=== PATIENT | female | born 1950 | race Native Hawaiian/Other Pacific Islander ===

== ENCOUNTER 2017-04-01 07:31 | Day surgery (SDC) | payer BC ==
[2017-03-28 09:48] LABS: PLATELET COUNT 312 K/uL (152-353)
[2017-03-28 10:05] LABS: POTASSIUM 4.4 mmol/L (3.6-5.2)
[2017-03-28 10:20] LABS: PARTIAL THROMBOPLASTIN TIME 22.3 SECONDS (24.5-33.6)
== END 2017-04-01 12:40 | disposition home or self-care (01) ==
LOC: OR 07:31
PROVIDERS: Student in an Organized Health Care Education/Training Program
PROC: 0DJD8ZZ Inspection of Lower Intestinal Tract, Via Natural or Artificial Opening Endoscopic (ICD-10-PCS; principal; 2017-04-01)
DX: K64.8 Other hemorrhoids (principal); Z12.11 Encounter for screening for malignant neoplasm of colon
CPT/HCPCS: 36415; 80053; 85027; 85610; 85730; J2001; J2250; J2704

== ENCOUNTER 2018-04-23 10:31 | Outpatient (CLI) | payer OTHER, BC ==
[2018-04-23 11:04] LABS: PLATELET COUNT 359 K/uL (152-353)
[2018-04-23 11:55] LABS: POTASSIUM 4.7 mmol/L (3.6-5.2)
== END 2018-04-23 19:27 | disposition home or self-care (01) ==
LOC: LABW 10:31
PROVIDERS: Internal Medicine
DX: I12.9 Hypertensive chronic kidney disease with stage 1 through stage 4 chronic kidney disease, or unspecified chronic kidney disease (principal); N18.4 Chronic kidney disease, stage 4 (severe); E87.5 Hyperkalemia; E87.2 Acidosis; N25.0 Renal osteodystrophy
CPT/HCPCS: 36415; 80053; 82570; 82728; 83540; 83550; 84100; 84155; 84550; 85027

== ENCOUNTER 2018-08-12 07:37 | Outpatient (CLI) | payer OTHER, BC ==
[2018-08-12 08:04] LABS: PLATELET COUNT 381 K/uL (152-353)
[2018-08-12 08:24] LABS: POTASSIUM 4.9 mmol/L (3.6-5.2)
== END 2018-08-12 22:58 | disposition home or self-care (01) ==
LOC: LABW 07:37
PROVIDERS: Specialist
DX: N18.4 Chronic kidney disease, stage 4 (severe) (principal); N18.9 Chronic kidney disease, unspecified; E87.5 Hyperkalemia; I12.9 Hypertensive chronic kidney disease with stage 1 through stage 4 chronic kidney disease, or unspecified chronic kidney disease; E87.2 Acidosis
CPT/HCPCS: 36415; 80053; 81000; 82570; 83970; 84100; 84155; 85027

== ENCOUNTER 2018-12-10 08:26 | Outpatient (CLI) | payer OTHER, BC ==
[2018-12-10 08:56] LABS: POTASSIUM 4.6 mmol/L (3.6-5.2)
== END 2018-12-10 22:47 | disposition home or self-care (01) ==
LOC: LABW 08:26
PROVIDERS: Internal Medicine
DX: N18.4 Chronic kidney disease, stage 4 (severe) (principal); N18.9 Chronic kidney disease, unspecified
CPT/HCPCS: 36415; 80048

== ENCOUNTER 2019-02-19 09:36 | Outpatient (CLI) | payer OTHER, BC ==
[2019-02-19 09:55] LABS: PLATELET COUNT 317 K/uL (152-353)
[2019-02-19 10:08] LABS: POTASSIUM 4.8 mmol/L (3.6-5.2)
== END 2019-02-19 21:41 | disposition home or self-care (01) ==
LOC: LAB 09:36
PROVIDERS: Internal Medicine
DX: I12.9 Hypertensive chronic kidney disease with stage 1 through stage 4 chronic kidney disease, or unspecified chronic kidney disease (principal)
CPT/HCPCS: 36415; 80053; 81000; 82570; 83970; 84100; 84155; 85027

== ENCOUNTER 2019-06-15 08:35 | Outpatient (CLI) | payer OTHER, BC ==
[2019-06-15 10:29] LABS: PLATELET COUNT 298 K/uL (152-353)
[2019-06-15 11:30] LABS: POTASSIUM 5.1 mmol/L (3.6-5.2); SODIUM 142 mmol/L (136-145)
== END 2019-06-15 23:18 | disposition home or self-care (01) ==
LOC: LABW 08:35
PROVIDERS: Internal Medicine
DX: I12.9 Hypertensive chronic kidney disease with stage 1 through stage 4 chronic kidney disease, or unspecified chronic kidney disease (principal); N18.4 Chronic kidney disease, stage 4 (severe)
CPT/HCPCS: 36415; 80053; 81000; 82570; 83970; 84100; 84155; 85027

== ENCOUNTER 2019-10-06 08:39 | Outpatient (CLI) | payer OTHER, BC ==
[2019-10-06 09:33] LABS: POTASSIUM 5.3 mmol/L (3.6-5.2)
[2019-10-06 10:00] LABS: PLATELET COUNT 322 K/uL (152-353)
== END 2019-10-06 19:34 | disposition home or self-care (01) ==
LOC: LABW 08:39
PROVIDERS: Internal Medicine
DX: I12.9 Hypertensive chronic kidney disease with stage 1 through stage 4 chronic kidney disease, or unspecified chronic kidney disease (principal)
CPT/HCPCS: 36415; 80053; 81000; 82570; 84100; 84155; 85027

== ENCOUNTER 2020-01-04 09:28 | Outpatient (CLI) | payer OTHER, BC ==
[2020-01-04 09:57] LABS: PLATELET COUNT 311 K/uL (152-353)
[2020-01-04 10:10] LABS: SODIUM 136 mmol/L (136-145)
== END 2020-01-04 19:51 | disposition home or self-care (01) ==
LOC: LABW 09:28
PROVIDERS: Internal Medicine
DX: I12.9 Hypertensive chronic kidney disease with stage 1 through stage 4 chronic kidney disease, or unspecified chronic kidney disease (principal)
CPT/HCPCS: 36415; 80069; 81000; 82570; 83970; 84155; 85027

== ENCOUNTER 2020-03-09 14:19 | Outpatient (CLI) | payer OTHER, BC ==
[2020-03-09 14:52] LABS: PLATELET COUNT 350 K/uL (152-353)
[2020-03-09 14:56] LABS: POTASSIUM 3.8 mmol/L (3.6-5.2)
== END 2020-03-09 21:37 | disposition home or self-care (01) ==
LOC: LABW 14:19 → LAB 14:19
PROVIDERS: Internal Medicine
DX: E83.42 Hypomagnesemia (principal); Z94.0 Kidney transplant status; Z79.899 Other long term (current) drug therapy; R82.998 Other abnormal findings in urine; E83.39 Other disorders of phosphorus metabolism; N18.4 Chronic kidney disease, stage 4 (severe); E03.8 Other specified hypothyroidism
CPT/HCPCS: 80048; 80197; 81000; 83735; 84100; 85027

== ENCOUNTER 2020-07-29 08:39 | Outpatient (CLI) | payer OTHER, BC | END 2020-07-29 23:25 | disposition home or self-care (01) | LOC: US 08:39 | DX: M79.605 Pain in left leg (principal); M79.604 Pain in right leg; R22.43 Localized swelling, mass and lump, lower limb, bilateral ==

== ENCOUNTER 2020-10-03 08:49 | Outpatient (CLI) | payer OTHER, BC | END 2020-10-03 19:03 | disposition home or self-care (01) | LOC: LAB 08:49 | PROVIDERS: ATTEND Internal Medicine | DX: N18.4 Chronic kidney disease, stage 4 (severe) (principal); Z94.0 Kidney transplant status ==

== ENCOUNTER 2021-03-03 12:44 | Outpatient (CLI) | payer BC ==
[2021-03-03 13:35] LABS: POTASSIUM 4.3 mmol/L (3.6-5.2)
== END 2021-03-03 20:55 | disposition home or self-care (01) ==
LOC: LAB 12:44
PROVIDERS: ATTEND Nurse Practitioner Family
DX: Z94.4 Liver transplant status (principal); Z79.01 Long term (current) use of anticoagulants
CPT/HCPCS: 36415; 80048

== ENCOUNTER 2021-08-25 08:23 | Outpatient (CLI) | payer BC | END 2021-08-25 19:52 | disposition home or self-care (01) | LOC: LAB 08:23 | PROVIDERS: ATTEND Nurse Practitioner Family | DX: Z01.84 Encounter for antibody response examination (principal); Z20.822 Contact with and (suspected) exposure to COVID-19 | CPT/HCPCS: 36415; 86769 ==

== ENCOUNTER 2021-11-11 10:54 | Emergency (ER) | payer BC ==
[~2021-11-11] VITALS: Ht 165.1 cm; Wt 80.7 kg
[2021-11-11 11:00] VITALS: BP 113/73; TEMP 98.6
== END 2021-11-11 12:05 | disposition home or self-care (01) ==
LOC: ED 10:54
DX: N39.0 Urinary tract infection, site not specified (principal); Z94.0 Kidney transplant status
CPT/HCPCS: 81000; 87077; 87086; 87088; 87186; 96372; 99283; J0696

== ENCOUNTER 2022-04-05 08:42 | Outpatient (CLI) | payer BC ==
[2022-04-05 09:05] LABS: PLATELET COUNT 276 K/uL (152-353)
[2022-04-05 09:14] LABS: POTASSIUM 4.5 mmol/L (3.6-5.2)
== END 2022-04-05 19:21 | disposition home or self-care (01) ==
LOC: LABW 08:42
PROVIDERS: ATTEND Internal Medicine
DX: E83.39 Other disorders of phosphorus metabolism (principal); E83.42 Hypomagnesemia; Z94.0 Kidney transplant status; Z79.899 Other long term (current) drug therapy; R82.998 Other abnormal findings in urine; B25.8 Other cytomegaloviral diseases
CPT/HCPCS: 36415; 80048; 80197; 81000; 83735; 84100; 85027; 87497

== ENCOUNTER 2022-05-01 08:39 | Outpatient (CLI) | payer BC ==
[2022-05-01 09:16] LABS: PLATELET COUNT 267 K/uL (152-353)
[2022-05-01 09:29] LABS: POTASSIUM 4.2 mmol/L (3.6-5.2)
== END 2022-05-01 19:10 | disposition home or self-care (01) ==
LOC: LABW 08:39
PROVIDERS: ATTEND Student in an Organized Health Care Education/Training Program
DX: Z94.0 Kidney transplant status (principal); Z79.899 Other long term (current) drug therapy; E83.42 Hypomagnesemia; E83.39 Other disorders of phosphorus metabolism; E79.0 Hyperuricemia without signs of inflammatory arthritis and tophaceous disease; R82.998 Other abnormal findings in urine
CPT/HCPCS: 36415; 80048; 80197; 81002; 83735; 84100; 84550; 85027

== ENCOUNTER 2022-06-18 08:12 | Outpatient (CLI) | payer BC ==
[2022-06-18 08:32] LABS: PLATELET COUNT 329 K/uL (152-353)
[2022-06-18 08:49] LABS: POTASSIUM 4.3 mmol/L (3.6-5.2)
== END 2022-06-18 18:55 | disposition home or self-care (01) ==
LOC: LABW 08:12
PROVIDERS: ATTEND Student in an Organized Health Care Education/Training Program
DX: Z94.0 Kidney transplant status (principal); Z79.899 Other long term (current) drug therapy; E83.42 Hypomagnesemia; E83.39 Other disorders of phosphorus metabolism; E79.0 Hyperuricemia without signs of inflammatory arthritis and tophaceous disease; R82.998 Other abnormal findings in urine
CPT/HCPCS: 36415; 80048; 80197; 81002; 83735; 84100; 84550; 85027

== ENCOUNTER 2022-07-13 08:28 | Outpatient (CLI) | payer BC ==
[2022-07-13 08:59] LABS: PLATELET COUNT 295 K/uL (152-353)
[2022-07-13 09:07] LABS: POTASSIUM 4.5 mmol/L (3.6-5.2)
== END 2022-07-13 21:46 | disposition home or self-care (01) ==
LOC: LABW 08:28
PROVIDERS: ATTEND Student in an Organized Health Care Education/Training Program
DX: Z94.0 Kidney transplant status (principal); Z79.899 Other long term (current) drug therapy; E83.42 Hypomagnesemia; E83.39 Other disorders of phosphorus metabolism; E79.0 Hyperuricemia without signs of inflammatory arthritis and tophaceous disease; R82.998 Other abnormal findings in urine
CPT/HCPCS: 36415; 80048; 80197; 81002; 83735; 84100; 84550; 85027

== ENCOUNTER 2022-08-21 08:29 | Outpatient (CLI) | payer BC ==
[2022-08-21 08:50] LABS: PLATELET COUNT 307 K/uL (152-353)
[2022-08-21 08:59] LABS: POTASSIUM 4.3 mmol/L (3.6-5.2)
== END 2022-08-21 19:29 | disposition home or self-care (01) ==
LOC: LABW 08:29
PROVIDERS: ATTEND Student in an Organized Health Care Education/Training Program
DX: Z94.0 Kidney transplant status (principal); Z79.899 Other long term (current) drug therapy; E83.42 Hypomagnesemia; E83.39 Other disorders of phosphorus metabolism; E79.0 Hyperuricemia without signs of inflammatory arthritis and tophaceous disease; R82.998 Other abnormal findings in urine
CPT/HCPCS: 36415; 80048; 80197; 81002; 83735; 84100; 84550; 85027

== ENCOUNTER 2022-09-01 10:35 | Emergency (ER) | payer BC ==
[~2022-09-01] VITALS: Ht 165.1 cm; Wt 86.6 kg
[2022-09-01 11:31] VITALS: BP 131/56; TEMP 97.1
== END 2022-09-01 11:31 | disposition home or self-care (01) ==
LOC: ED 10:35
DX: M54.59 Other low back pain (principal); M53.3 Sacrococcygeal disorders, not elsewhere classified
CPT/HCPCS: 99282

== ENCOUNTER 2022-09-07 09:18 | Emergency (ER) | payer BC ==
[~2022-09-07] VITALS: Ht 165.1 cm; Wt 86.6 kg
[2022-09-07 09:27] VITALS: TEMP 96.9
[2022-09-07 10:36] LABS: PLATELET COUNT 403 K/uL (152-353)
[2022-09-07 10:47] LABS: POTASSIUM 4.2 mmol/L (3.6-5.2)
[2022-09-07 13:57] VITALS: BP 169/88
== END 2022-09-07 13:57 | disposition home or self-care (01) ==
LOC: ED 09:18
PROVIDERS: Emergency Medicine
DX: N39.0 Urinary tract infection, site not specified (principal)
CPT/HCPCS: 36415; 80053; 81000; 85027; 87077; 87086; 87088; 87186; 96365; 96366; 96375; 99284; J1956; J2270; J2405

== ENCOUNTER 2022-09-14 12:15 | Outpatient (CLI) | payer BC | END 2022-09-14 19:08 | disposition home or self-care (01) | LOC: MRI 12:15 | PROVIDERS: ATTEND Internal Medicine | DX: Z09 Encounter for follow-up examination after completed treatment for conditions other than malignant neoplasm (principal); Z86.718 Personal history of other venous thrombosis and embolism; M54.17 Radiculopathy, lumbosacral region; M25.579 Pain in unspecified ankle and joints of unspecified foot; Z94.0 Kidney transplant status; M25.551 Pain in right hip; E11.9 Type 2 diabetes mellitus without complications ==

== ENCOUNTER 2022-09-24 08:09 | Outpatient (CLI) | payer BC ==
[2022-09-24 09:12] LABS: POTASSIUM 4.1 mmol/L (3.6-5.2)
[2022-09-24 16:06] LABS: PLATELET COUNT 346 K/uL (152-353)
== END 2022-09-24 19:53 | disposition home or self-care (01) ==
LOC: LABW 08:09
PROVIDERS: ATTEND Student in an Organized Health Care Education/Training Program
DX: Z94.0 Kidney transplant status (principal); Z79.899 Other long term (current) drug therapy; E83.42 Hypomagnesemia; E83.39 Other disorders of phosphorus metabolism; E79.0 Hyperuricemia without signs of inflammatory arthritis and tophaceous disease; R82.998 Other abnormal findings in urine
CPT/HCPCS: 36415; 80048; 80197; 81002; 83735; 84100; 84550; 85027

== ENCOUNTER 2022-10-15 08:20 | Outpatient (CLI) | payer BC ==
[2022-10-15 08:35] LABS: PLATELET COUNT 309 K/uL (152-353)
[2022-10-15 08:46] LABS: POTASSIUM 4.4 mmol/L (3.6-5.2)
== END 2022-10-15 19:33 | disposition home or self-care (01) ==
LOC: LABW 08:20
PROVIDERS: ATTEND Student in an Organized Health Care Education/Training Program
DX: Z94.0 Kidney transplant status (principal); Z79.899 Other long term (current) drug therapy; E83.42 Hypomagnesemia; E83.39 Other disorders of phosphorus metabolism; E79.0 Hyperuricemia without signs of inflammatory arthritis and tophaceous disease; R82.998 Other abnormal findings in urine
CPT/HCPCS: 36415; 80048; 80197; 81002; 83735; 84100; 84550; 85027

== ENCOUNTER 2022-11-14 08:36 | Outpatient (CLI) | payer BC ==
[2022-11-14 09:00] LABS: PLATELET COUNT 296 K/uL (152-353)
[2022-11-14 09:10] LABS: POTASSIUM 4.3 mmol/L (3.6-5.2)
== END 2022-11-14 18:59 | disposition home or self-care (01) ==
LOC: LABW 08:36
PROVIDERS: ATTEND Student in an Organized Health Care Education/Training Program
DX: Z94.0 Kidney transplant status (principal); Z79.899 Other long term (current) drug therapy; E83.42 Hypomagnesemia; E83.39 Other disorders of phosphorus metabolism; E79.0 Hyperuricemia without signs of inflammatory arthritis and tophaceous disease; R82.998 Other abnormal findings in urine
CPT/HCPCS: 36415; 80048; 80197; 81002; 83735; 84100; 84550; 85027

== ENCOUNTER 2022-12-18 08:11 | Outpatient (CLI) | payer BC ==
[2022-12-18 08:35] LABS: POTASSIUM 4.7 mmol/L (3.6-5.2)
[2022-12-18 08:43] LABS: PLATELET COUNT 333 K/uL (152-353)
== END 2022-12-18 23:04 | disposition home or self-care (01) ==
LOC: LABW 08:11
PROVIDERS: ATTEND Student in an Organized Health Care Education/Training Program
DX: Z94.0 Kidney transplant status (principal); Z79.899 Other long term (current) drug therapy; E83.42 Hypomagnesemia; E83.39 Other disorders of phosphorus metabolism; E79.0 Hyperuricemia without signs of inflammatory arthritis and tophaceous disease; R82.998 Other abnormal findings in urine
CPT/HCPCS: 36415; 80048; 80197; 81002; 83735; 84100; 84550; 85027

== ENCOUNTER 2023-01-14 07:59 | Outpatient (CLI) | payer BC ==
[2023-01-14 08:13] LABS: PLATELET COUNT 308 K/uL (152-353)
[2023-01-14 08:26] LABS: POTASSIUM 4.5 mmol/L (3.6-5.2)
== END 2023-01-14 19:42 | disposition home or self-care (01) ==
LOC: LABW 07:59
PROVIDERS: ATTEND Student in an Organized Health Care Education/Training Program
DX: Z94.0 Kidney transplant status (principal); Z79.899 Other long term (current) drug therapy; E83.42 Hypomagnesemia; E83.39 Other disorders of phosphorus metabolism; E79.0 Hyperuricemia without signs of inflammatory arthritis and tophaceous disease; R82.998 Other abnormal findings in urine
CPT/HCPCS: 36415; 80048; 80197; 81002; 83735; 84100; 84550; 85027

== ENCOUNTER 2023-02-14 07:57 | Outpatient (CLI) | payer BC ==
[2023-02-14 09:01] LABS: POTASSIUM 4.3 mmol/L (3.6-5.2)
[2023-02-14 10:14] LABS: PLATELET COUNT 318 K/uL (152-353)
== END 2023-02-14 18:59 | disposition home or self-care (01) ==
LOC: LABW 07:57
PROVIDERS: ATTEND Student in an Organized Health Care Education/Training Program
DX: Z94.0 Kidney transplant status (principal); Z79.899 Other long term (current) drug therapy; E83.42 Hypomagnesemia; E83.39 Other disorders of phosphorus metabolism; E79.0 Hyperuricemia without signs of inflammatory arthritis and tophaceous disease; R82.998 Other abnormal findings in urine
CPT/HCPCS: 36415; 80048; 80197; 81002; 83735; 84100; 84550; 85027

== ENCOUNTER 2023-05-15 08:21 | Outpatient (CLI) | payer BC ==
[2023-05-15 08:39] LABS: PLATELET COUNT 307 K/uL (152-353)
[2023-05-15 08:48] LABS: POTASSIUM 4.6 mmol/L (3.6-5.2)
== END 2023-05-15 18:59 | disposition home or self-care (01) ==
LOC: LABW 08:21
PROVIDERS: ATTEND Nurse Practitioner Family
DX: Z94.0 Kidney transplant status (principal); Z79.60 Long term (current) use of unspecified immunomodulators and immunosuppressants; E83.42 Hypomagnesemia; E83.39 Other disorders of phosphorus metabolism; E79.0 Hyperuricemia without signs of inflammatory arthritis and tophaceous disease; R82.998 Other abnormal findings in urine
CPT/HCPCS: 36415; 80048; 80197; 81002; 83735; 84100; 84550; 85027

== ENCOUNTER 2023-06-25 07:53 | Outpatient (CLI) | payer BC ==
[2023-06-25 08:32] LABS: POTASSIUM 4.1 mmol/L (3.6-5.2)
== END 2023-06-25 18:52 | disposition home or self-care (01) ==
LOC: LABW 07:53
PROVIDERS: ATTEND Internal Medicine Nephrology
DX: E11.9 Type 2 diabetes mellitus without complications (principal); D84.89 Other immunodeficiencies; I82.409 Acute embolism and thrombosis of unspecified deep veins of unspecified lower extremity; M18.32 Unilateral post-traumatic osteoarthritis of first carpometacarpal joint, left hand; T86.19 Other complication of kidney transplant; Z79.899 Other long term (current) drug therapy
CPT/HCPCS: 36415; 80061; 80069; 80197; 81002; 82570; 84156; 87086; 87088

== ENCOUNTER 2023-08-22 08:55 | Outpatient (CLI) | payer BC | END 2023-08-22 19:43 | disposition home or self-care (01) | LOC: RAD 08:55 | PROVIDERS: ATTEND Internal Medicine | DX: Z01.818 Encounter for other preprocedural examination (principal) ==

== ENCOUNTER 2023-12-18 09:39 | Day surgery (SDC) | payer BC ==
[~2023-12-18] VITALS: Ht 165.1 cm; Wt 63.5 kg
[~2023-12-18 09:39] MED LIST: LACTATED RINGER'S 1,000 ML IV ONE; STERILE WATER IR ONE
[2023-12-18] MEDS ORDERED: PROPOFOL 10MG/ML 20ML INJ IV ONE (15:59)
[2023-12-18] MEDS ORDERED: LIDOCAINE HCL 2 % INJ INJ ONE (15:59)
== END 2023-12-18 12:20 | disposition home or self-care (01) ==
LOC: OR 09:39
PROVIDERS: ATTEND Internal Medicine Gastroenterology
DX: K25.9 Gastric ulcer, unspecified as acute or chronic, without hemorrhage or perforation (principal); K20.90 Esophagitis, unspecified without bleeding
CPT/HCPCS: J2001; J2704; J7120